=== PATIENT | female | born 1990 | race Caucasian/White ===

== ENCOUNTER 2017-01-14 16:33 | Inpatient (IN) | payer OTHER, MEDICAID ==
[2017-01-14 18:12] LABS: ROM Internal QC QC Line Present
[2017-01-14] MEDS ORDERED: OBEPIDURAL* 0 ML ONE (20:48)
[2017-01-14 21:02] LABS: Hematocrit 33 % (35-47); Hemoglobin 11.6 g/dl (12.0-16.0); Mean Corpuscular HGB Conc 35 g/dl (31-36); Mean Corpuscular Hemoglobin 36 pg (27-31); Mean Corpuscular Volume 101 fL (80-97); Mean Platelet Volume 8 um3 (7.4-10.4); Red Blood Count 3.26 10^6/ul (4.0-5.4); Red Cell Distribution Width 12 % (10.5-15)
[2017-01-14] MEDS ORDERED: fentaNYL* 50 MCG/ML 2 ML VIAL (100 MCG VIAL) ONE (21:14)
[2017-01-14] MEDS ORDERED: Witch Hazel PAD* JAR TOPICAL PRN (23:01)
[2017-01-14] MEDS ORDERED: Glycerin ADULT SUPP PR PRN (23:01)
[2017-01-14] MEDS ORDERED: Ibuprofen TAB* 600 MG PO PRN (23:01)
[2017-01-14] MEDS ORDERED: Acetaminophen TAB* 325 MG PO PRN (23:01)
[2017-01-14] MEDS ORDERED: Dibucaine 1% 28.35 GM TUBE PR PRN (23:01)
[2017-01-15 06:48] LABS: Hematocrit 33 % (35-47); Hemoglobin 11.8 g/dl (12.0-16.0); Mean Corpuscular HGB Conc 36 g/dl (31-36); Mean Corpuscular Hemoglobin 36 pg (27-31); Mean Corpuscular Volume 100 fL (80-97); Mean Platelet Volume 9 um3 (7.4-10.4); Red Blood Count 3.31 10^6/ul (4.0-5.4); Red Cell Distribution Width 13 % (10.5-15); White Blood Count 10.9 10^3/ul (3.5-10.8)
[2017-01-15] MEDS ORDERED: Simethicone CHEW TAB* 80 MG PO SCH (08:30)
[2017-01-15] MEDS ORDERED: Ferrous Gluconate TAB* 324 MG TAB PO SCH (09:00)
[2017-01-15] MEDS: Docusate CAP* 100 MG PO SCH ×3 (09:39→22:26)
[2017-01-15] MEDS ORDERED: RHO D Immune Globulin (HUMAN)* 300 MCG = 1,500 I.U. INJ IM ONE (14:07)
--- NOTE | 2017-01-15 14:18 | PTEDU ---
Patient Name: LEANN HINES LEANN HINES selected video: Never Ever Shake a Baby to view on 01/15/2017 at 2:18:08 PM from [id number]
[2017-01-16 08:23] VITALS: BP 104/52
--- NOTE | 2017-01-16 09:04 | PTEDU ---
Patient Name: LEANN HINES LEANN HINES selected video: Never Ever Shake a Baby to view on 01/16/2017 at 9:04:28 AM from [email or web address]
--- NOTE | 2017-01-16 09:14 | PTEDU ---
Patient Name: LEANN HINES LEANN HINES selected video: BBOB: Nurturing Your Gorgeous \T\Growing Baby by to bruce sullivan on 01/16/2017 at 9:13:15 AM from [email or web address]
--- NOTE | 2017-01-16 09:48 | PTEDU ---
Patient Name: LEANN HINES LEANN HINES selected video: BBOB: Bonding Through Infant Massage to view on 01/16/2017 at 9:47: 13 AM [id number]
--- NOTE | 2017-01-16 11:08 | PTEDU ---
Patient Name: LEANN HINES LEANN HINES selected video: Follow Me Mum: [employer] Successful to view on 01/16 at 11:07:41 AM from [email or web address]
== END 2017-01-16 12:57 | disposition home or self-care (01) | DRG 775 ==
LOC: EDBD 16:33 → MCHOBOUT 16:33 → MCHOB 18:31
PROVIDERS: ADMIT Obstetrics & Gynecology; ATTEND Obstetrics & Gynecology
PROC: 10E0XZZ Delivery of Products of Conception, External Approach (ICD-10-PCS; principal; 2017-01-14)
PROC: 4A1HX4Z Monitoring of Products of Conception, Cardiac Electrical Activity, External Approach (ICD-10-PCS; 2017-01-14)
DX: O42.02 Full-term premature rupture of membranes, onset of labor within 24 hours of rupture (principal); Z91.040 Latex allergy status; Z3A.40 40 weeks gestation of pregnancy; Z37.0 Single live birth
CPT/HCPCS: 36415; 84112; 85025; 85461; 86850; 86870; 86880; 86900; 86901; J2790; J3010